=== PATIENT | female | born 1945 | race Caucasian/White ===

== ENCOUNTER 2016-12-30 06:59 | Day surgery (SDC) | payer OTHER, MEDICARE ==
[~2016-12-30] VITALS: Ht 154.9 cm; Wt 77.1 kg
[~2016-12-30 06:59] MED LIST: AMLODIPINE BESY10 MG PO; AMLODIPINE BESYL5 MG PO; BENICAR40 MG PO; DOXAZOSIN MESYLA4 MG PO; FUROSEMIDE40 MG PO; GLIMEPIRIDE2 MG PO; LO-DOSE ASPIRIN81 M1 PO; METOPROLOL SUC200 MG PO; RENA-VITE RX T1 EACH PO; RENVELA800 MG PO; SEPTRA DS TABL1 EACH PO; SERTRALINE HCL50 MG PO; SIMVASTATIN20 MG PO; TOPROL XL100 MG PO; TOPROL XL200 MG PO; TRAZODONE HCL50 MG PO
[2016-12-30 07:37] LABS: POINT-OF-CARE METER ID UU13113696
[2016-12-30 08:43] LABS: METH RESISTANT S AUREUS PCR NEGATIVE (NEGATIVE)
[2016-12-30 08:45] LABS: PROBE CHECK PASS; SPECIMEN PROCESSING CONTROL PASS
== END 2016-12-30 09:40 | disposition home or self-care (01) ==
LOC: CATH 06:59
PROVIDERS: Surgery
DX: T82.41XA Breakdown (mechanical) of vascular dialysis catheter, initial encounter (principal); N18.6 End stage renal disease; Z99.2 Dependence on renal dialysis; I25.10 Atherosclerotic heart disease of native coronary artery without angina pectoris; I25.2 Old myocardial infarction; Z99.3 Dependence on wheelchair
CPT/HCPCS: 82948; 87641; C1725; C1769; C1894; J1644; J2250; J2930; J3010

== ENCOUNTER 2017-06-10 09:51 | Day surgery (SDC) | payer OTHER, MEDICARE ==
[~2017-06-10] VITALS: Ht 162.6 cm; Wt 81.7 kg
[~2017-06-10 09:51] MED LIST changes: +CEPHALEXIN500 MG PO; +METOPROLOL SUC100 MG PO
== END 2017-06-10 13:43 | disposition home or self-care (01) ==
LOC: CATH 09:51
PROVIDERS: Surgery
PROC: 05753ZZ Dilation of Right Subclavian Vein, Percutaneous Approach (ICD-10-PCS; principal; 2017-06-10)
PROC: 05HY33Z Insertion of Infusion Device into Upper Vein, Percutaneous Approach (ICD-10-PCS; principal; 2017-06-10)
PROC: 3E03317 Introduction of Other Thrombolytic into Peripheral Vein, Percutaneous Approach (ICD-10-PCS; principal; 2017-06-10)
PROC: B51W1ZZ Fluoroscopy of Dialysis Shunt/Fistula using Low Osmolar Contrast (ICD-10-PCS; principal; 2017-06-10)
DX: T82.41XA Breakdown (mechanical) of vascular dialysis catheter, initial encounter (principal); E11.22 Type 2 diabetes mellitus with diabetic chronic kidney disease; N18.6 End stage renal disease; Z99.2 Dependence on renal dialysis
CPT/HCPCS: 82948; 87641; C1725; C1769; C1894; J1644; J2250; J2930; J3010